=== PATIENT | male | born 1950 | race Two or more races ===

== ENCOUNTER 2024-09-29 13:21 | Inpatient (IN) | payer OTHER ==
[2024-09-29 14:03] LABS: Absolute Eosinophils 0.1 K/uL (0-0.5); Absolute Lymphocytes (CBC) 1.2 K/uL (0.7-4.9); Absolute Monocytes 0.5 K/uL (0.1-1.3); Absolute Neutrophil 3.8 K/uL (1.8-8.0); Basophils % 0.6 % (0-1.3); Eosinophils % 1.6 % (0-4.4); Hematocrit 46.8 % (39.6-49.0); Hemoglobin 15.3 g/dL (13.6-17.9); Lymphocytes % 21.8 % (15.3-44.8); MCH 30.6 pg (27.0-35.0); MCHC 32.8 g/dL (32.0-36.0); MCV 93.3 fL (80-100); MPV 7.9 fL (7.6-11.3); Monocytes % 8.7 % (3.3-12.3); Neutrophils % 67.3 % (41.7-73.7); Nucleated Red Blood Cells % 0.1 % (0-0); Platelets 156 thou/uL (152-406); RBC Red Blood Cell Count 5.02 M/uL (4.33-5.43); Red Cell Distribution Width 14.4 % (12.1-15.2)
[2024-09-29 14:13] LABS: Anion Gap 8.8 mEq/L (5.0-15.0); Magnesium 1.9 mg/dL (1.6-2.4); Potassium 3.8 mEq/L (3.5-5.1); Troponin High Sensitivity 43.1 pg/mL (<58.9)
--- NOTE | 2024-09-29 14:20 | RAD REPORT ---
Procedure: Chest Single View HISTORY: sob COMPARISON: none FINDINGS: [id number] bilateral pleural effusions suspected. Mild bilateral pulmonary opacities. Heart is mildly enlarged. IMPRESSION: These findings probably indicate CHF
[2024-09-29 14:28] LABS: SARS-CoV-2 Antigen CONTROL BLUE LINE VIS/BG OK; SARS-CoV-2 Antigen Rapid Res Negative (Negative)
[2024-09-29 14:30] LABS: PT Prothrombin Time 13.3 SECONDS (9.4-12.5); Protime INR 1.19
--- NOTE | 2024-09-29 14:33 | ER ---
Nurse's Notes [facility] Name: Cy Hills Age: 73 yrs Sex: Male : 1950 Arrival Date: 09/29/2024 Time: 13:21 Bed 4 Private MD: Diagnosis: Heart failure, unspecified;Dyspnea, unspecified Presentation: 09/29 13:30 Chief complaint: EMS states: Pt reports shortness of breath since yesterday. When we jb4 were checking his pulse ox we noticed he had a RR of 36. We ran a 12 lead and noted that the pt was having couplets and triplets. We started him on an Amiodarone drip due to the pvc's. Coronavirus screen: At this time, the client does not indicate any symptoms associated with coronavirus-19. Ebola Screen: No symptoms or risks identified at this time. Initial Sepsis Screen: Does the patient meet any 2 criteria? RR > 20 per min. Yes Does the patient have a suspected source of infection? No. Patient's initial sepsis screen is negative. Risk Assessment: Do you want to hurt yourself or someone else? Patient reports no desire to harm self or others. Onset of symptoms was September 25, 2024. Transition of care: patient was not received from another setting of care. 13:30 Method Of Arrival: EMS: [facility] [place] [place] [facility] jb4 13:30 Acuity: DEBRA 2 jb4 Triage Assessment: 13:36 General: Appears in no apparent distress. comfortable, Behavior is calm, cooperative, jb4 appropriate for age. Pain: Denies pain. Neuro: Level of Consciousness is awake, alert, obeys commands, Oriented to person, place, time, situation. Cardiovascular: Patient's skin is warm and dry. Rhythm is sinus rhythm with couplets. Respiratory: Reports shortness of breath at rest on exertion Airway is patent Respiratory effort is even, labored, Respiratory pattern is symmetrical, tachypnea. Derm: Skin is intact, Skin is pink, warm \T\ dry. Musculoskeletal: Circulation, motion, and sensation intact. Range of motion: intact in all extremities. Historical: - Allergies: 13:49 No Known Allergies; jb4 - PMHx: 13:49 high cholesterol; jb4 13:51 HTN; jb4 - PSHx: 13:49 cardiac stents; jb4 - Immunization history:: Adult Immunizations up to date. - Infectious Disease History:: Denies. - Social history:: Smoking status: Patient denies any tobacco usage or history of. Screenin:03 [facility] ED Fall Risk Assessment (Adult) History of falling in the last 3 months, jb4 including since admission No falls in past 3 months (0 pts) Confusion or Disorientation No (0 pts) Intoxicated or Sedated No (0 pts) Impaired Gait No (0 pts) Mobility Assist Device Used No (0 pt) Altered Elimination No (0 pt) Score/Fall Risk Level 0 - 2 = Low Risk Oriented to surroundings, Maintained a safe environment. Abuse screen: Denies threats or abuse. Nutritional screening: No deficits noted. Tuberculosis screening: No symptoms or risk factors identified. Assessment: 13:36 Reassessment: see triage note. jb4 15:00 Reassessment: Patient appears in no apparent distress at this time. Patient and/or jb4 family updated on plan of care and expected duration. Pain level reassessed. Patient is alert, oriented x 3, equal unlabored respirations, skin warm/dry/pink. 16:18 Reassessment: Patient appears in no apparent distress at this time. Patient and/or jb4 family updated on plan of care and expected duration. Pain level reassessed. Patient is alert, oriented x 3, equal unlabored respirations, skin warm/dry/pink. 16:58 Reassessment: Patient appears in no apparent distress at this time. Patient and/or jb4 family updated on plan of care and expected duration. Pain level reassessed. Patient is alert, oriented x 3, equal unlabored respirations, skin warm/dry/pink. Vital Signs: 13:30 BP 171 / 83; Pulse 75; Resp 21; Pulse Ox 94% on 2 lpm NC; jb4 14:55 BP 161 / 109; Pulse 96; Resp 28; Temp 97.6; Pulse Ox 96% on R/A; jb4 16:18 BP 159 / 103; Pulse 71; Resp 16; Pulse Ox 95% on R/A; jb4 16:58 BP 150 / 89; Pulse 77; Resp 26; Temp 97.8(TE); Pulse Ox 95% on R/A; jb4 ED Course: 13:30 Patient arrived in ED. jb4 13:32 Moises Kunz MD is Attending Physician. ec2 13:36 Arm band placed on right wrist. jb4 13:36 No provider procedures requiring assistance completed. Maintain EMS IV. Dressing jb4 intact. Good blood return noted. Site clean \T\ dry. Gauge \T\ site: 20g RAC. Flushed with 10 mL NS. 13:38 Triage completed. jb4 13:48 Liu Villalobos, RN is Primary Nurse. jb4 13:57 XRAY Chest (1 view) In Process Unspecified. EDMS 14:03 Patient has correct armband on for positive identification. Bed in low position. Call jb4 light in reach. Side rails up X 1. Provided Education on: plan of care. 14:33 Harvey Stewart is Hospitalizing Provider. ec2 15:02 Galilea Goldman [phone] daughter would like to called for any questions or concerns. eb 17:57 Patient admitted, IV remains in place. jb4 Administered Medications: 14:44 Drug: Furosemide IVP 40 mg IVP once; give over 2 minutes Route: IVP; Site: right jb4 antecubital; 15:15 Follow up: Response: No adverse reaction jb4 Output: 16:18 Urine: 1000ml (Voided); Total: 1000ml. jb4 Outcome: 14:33 Decision to Hospitalize by Provider. ec2 17:57 Admitted to Med/surg accompanied by nurse, via stretcher, room 208, with chart, jb4 17:57 Condition: stable 17:57 Discharge instructions given to patient, Instructed on the need for admit, Demonstrated understanding of instructions, 17:58 Patient left the ED. jb4 Signatures: Dispatcher [employer] EDLiu Alan, CHACORTA WHATLEY jb4 Jeanne Tomlinson Moises Kunz MD MD ec2
--- NOTE | 2024-09-29 14:33 | EDPHYS ---
Physician Documentation [facility] Name: Cy Hills Age: 73 yrs Sex: Male : 1950 Arrival Date: 09/29/2024 Time: 13:21 Bed 4 Private MD: ED Physician Moises Kunz HPI: 09/29 13:47 This 73 yrs old Male presents to ER via EMS with complaints of Shortness Of ec2 Breath. 13:47 Patient arrives today for several days of shortness of breath. Patient reports some ec2 congestion. Patient reports shortness of breath ongoing for several days with no specific alleviating or exacerbating factors. Patient reports no nausea or vomiting, does report occasional cough. Denies any chest pain, denies abdominal pain, denies any diarrheal symptoms.. Historical: - Allergies: 13:49 No Known Allergies; jb4 - PMHx: 13:49 high cholesterol; jb4 13:51 HTN; jb4 - PSHx: 13:49 cardiac stents; jb4 - Immunization history:: Adult Immunizations up to date. - Infectious Disease History:: Denies. - Social history:: Smoking status: Patient denies any tobacco usage or history of. ROS: 13:47 Constitutional: as per hpi ec2 Exam: 13:47 Constitutional: GEN: NAD Head: atraumatic Eyes: EOMI Ears: External ears are ec2 normal. CV: regular rate LUNGS: no respiratory distress, no wheezes, no rales, no rhonchi ABD: non-distended SKIN: no evidence of rashes MSK: no evidence of trauma Vital Signs: 13:30 BP 171 / 83; Pulse 75; Resp 21; Pulse Ox 94% on 2 lpm NC; jb4 14:55 BP 161 / 109; Pulse 96; Resp 28; Temp 97.6; Pulse Ox 96% on R/A; jb4 16:18 BP 159 / 103; Pulse 71; Resp 16; Pulse Ox 95% on R/A; jb4 16:58 BP 150 / 89; Pulse 77; Resp 26; Temp 97.8(TE); Pulse Ox 95% on R/A; jb4 MDM: 13:32 Medical Screening Exam initiated ec2 13:47 Data reviewed: vital signs, nurses notes. ED course: Patient arrives today for ec2 evaluation of shortness of breath. Examination is unrevealing. Will obtain lab work, EKG, chest x-ray. Differential includes processes such as ACS, electrolyte disturbances, anemia, volume overload. EKG obtained, independently reviewed and interpreted by me, shows sinus rhythm, rate of 82, no acute ST segment elevations, intervals are nonactionable. 14:20 ED course: Metabolic profile reassuring. BNP elevated at 4400. CBC nonactionable. ec2 Troponin within normal ranges. Magnesium within normal ranges.. 14:21 ED course: Chest x-ray shows cardiomegaly along with vascular congestion consistent ec2 with CHF.. 14:31 ED course: Patient with no known history of congestive heart failure, does not take a ec2 diuretic at home, states he is having some orthopnea as well as some issues with independent activities at home and he lives alone, will admit for diuresis. Discussed with hospitalist, pending admission.. 09/29 13:34 Order name: Basic Metabolic Panel; Complete Time: 14:20 ec2 09/29 13:34 Order name: CBC with Diff; Complete Time: 14:20 ec2 09/29 13:34 Order name: Magnesium; Complete Time: 14:20 ec2 09/29 13:34 Order name: NT PRO-BNP; Complete Time: 14:20 ec2 09/29 13:34 Order name: PT-INR; Complete Time: 14:31 ec2 09/29 13:34 Order name: Troponin HS; Complete Time: 14:20 ec2 09/29 13:34 Order name: Influenza Screen (a \T\ B); Complete Time: 14:31 ec2 09/29 13:34 Order name: SARS RAPID; Complete Time: 14:31 ec2 09/29 16:51 Order name: Thyroid Stimulating Hormone EDMS 09/29 16:51 Order name: CBC with Automated Diff EDMS 09/29 16:51 Order name: CBC with Automated Diff EDMS 09/29 16:51 Order name: CBC with Automated Diff EDMS 09/29 16:51 Order name: CBC with Automated Diff EDMS 09/29 16:51 Order name: CBC with Automated Diff EDMS 09/29 16:51 Order name: Comprehensive Metabolic Panel EDMS 09/29 16:51 Order name: Comprehensive Metabolic Panel ED[facility] 09/29 16:51 Order name: Comprehensive Metabolic Panel ED[facility] 09/29 16:51 Order name: Comprehensive Metabolic Panel [facility] 09/29 16:51 Order name: Comprehensive Metabolic Panel [facility] 09/29 16:51 Order name: Hemoglobin A1c [facility] 09/29 16:51 Order name: Hemoglobin A1c [facility] 09/29 16:51 Order name: Lipid Profile [facility] 09/29 16:51 Order name: Lipid Profile [facility] 09/29 16:51 Order name: Magnesium [facility] 09/29 16:51 Order name: Magnesium [facility] 09/29 16:51 Order name: Magnesium [facility] 09/29 16:51 Order name: Magnesium [facility] 09/29 16:51 Order name: Magnesium [facility] 09/29 16:51 Order name: Phosphorus [facility] 09/29 16:51 Order name: Phosphorus [facility] 09/29 16:52 Order name: Phosphorus [facility] 09/29 16:52 Order name: Phosphorus [facility] 09/29 16:52 Order name: Phosphorus [facility] 09/29 16:52 Order name: Troponin High Sensitivity [facility] 09/29 16:52 Order name: Troponin High Sensitivity [facility] 09/29 16:52 Order name: Troponin High Sensitivity [facility] 09/29 16:52 Order name: Blood Culture [facility] 09/29 13:34 Order name: XRAY Chest (1 view); Complete Time: 14:21 ec2 09/29 16:51 Order name: Echo with Doppler [facility] 09/29 13:34 Order name: EKG; Complete Time: 13:34 ec2 09/29 16:23 Order name: Social Service Consult [facility] 09/29 16:51 Order name: CONS Physician Consult [facility] 09/29 16:51 Order name: Physical Therapy Consult [facility] 09/29 16:51 Order name: Occupational Therapy Consult [facility] 09/29 13:34 Order name: Cardiac monitoring; Complete Time: 13:49 ec2 09/29 13:34 Order name: EKG - Nurse/Tech; Complete Time: 13:49 ec2 09/29 13:34 Order name: IV Saline Lock; Complete Time: 13:49 ec2 09/29 13:34 Order name: Labs collected and sent; Complete Time: 13:49 ec2 09/29 13:34 Order name: O2 Per Protocol; Complete Time: 13:49 ec2 09/29 13:34 Order name: O2 Sat Monitoring; Complete Time: 13:49 ec2 Administered Medications: 14:44 Drug: Furosemide IVP 40 mg IVP once; give over 2 minutes Route: IVP; Site: right jb4 antecubital; 15:15 Follow up: Response: No adverse reaction jb4 Disposition Summary: 09/29/24 14:33 Hospitalization Ordered Notes: Hospitalization Status: Inpatient Admission ec2 Provider: Harvey Stewart ec2 Location: Telemetry/MedSurg (Inpatient) ec2 Condition: Stable ec2 Problem: new ec2 Symptoms: are unchanged ec2 Bed/Room Type: Standard ec2 Room Assignment: 208(09/29/24 16:57) jb4 Diagnosis - Heart failure, unspecified ec2 - Dyspnea, unspecified ec2 Forms: - Medication Reconciliation Form ec2 - SBAR form ec2 - Leadership Thank You Letter ec2 Signatures: Dispatcher [employer] Liu Mathews RN RN jb4 Moises Kunz MD MD ec2 Corrections: (The following items were deleted from the chart) 16:57 14:33 ec2 jb4
[2024-09-29] MEDS ORDERED: FUROSEMIDE 40 MG/4 ML VIAL ONE (14:40)
--- NOTE | 2024-09-29 16:05 | P.HP ---
Certification for Inpatient Patient admitted to: Inpatient With expected LOS: >2 Midnights Patient will require the following post-hospital care: Home Health Services Practitioner: I am a practitioner with admitting privileges, knowledge of patient current condition, hospital course, and medical plan of care. Services: Services provided to patient in accordance with Admission requirements found in Title 42 Section 412.3 of the Code of Federal Regulations Patient History Date of Service: 09/29/24 Reason for admission: Heart failure with unknown EF History of Present Illness: Mr. Hills is a friendly 73-year-old gentleman with a past medical history of hypertension, hyperlipidemia, PAD, CVA, and immobility. He presented to the emergency department via [facility] as his EMS with a complaint of a 3-day history of shortness of breath. He denies exacerbating or alleviating factors. He denies fever, nausea, vomiting but does report occasional cough and palpitations. In the emergency department he was found to have heart failure with unknown EF and volume overload. He is in no acute distress but did receive 40 mg Lasix IV and hospitalist program was consulted for admission. He will need an echo, cardiology consult, and delinquency prevention social worker consult for possible SNF placement versus home health with half-way/PT/OT/wound care. Allergies No Known Allergies Allergy (Unverified 09/29/24 16:05) Home medications list reviewed: Yes (Atorvastatin and aspirin) - Past Medical/Surgical History Has patient received pneumonia vaccine in the past: No Diabetic: No -: Hypertension -: PAD with saphenous vein ligation and stripping -: [place] with PCI x 2 -: Hyperlipidemia -: Tobacco abuse -: CVA x 2 -: PCI x 2 (1999 and 2004) -: Bilateral lower extremity saphenous vein ligation and stripping -: Hernia repair Psychosocial/ Personal History: Lives in [place]. Not ambulatory since 2012. Has had sporadic home health but none presently - Social History Smoking Status: Former smoker Alcohol use: No CD- Drugs: No Caffeine use: Yes Place of Residence: Home Review of Systems 10-point ROS is otherwise unremarkable General: Weakness, Malaise Eyes: Unremarkable ENT: Unremarkable Respiratory: Cough, Shortness of Breath Cardiovascular: Palpitations, Light Headedness Genitourinary: Unremarkable Musculoskeletal: Unremarkable Integumentary: Other (Chronic wounds from immobility) Neurological: Unremarkable Lymphatics: Unremarkable Physical Examination - Physical Exam General: Alert, In no apparent distress, Oriented x3 HEENT: Atraumatic, Normocephalic, PERRLA Neck: Supple Respiratory: Clear to auscultation bilaterally, Normal air movement Cardiovascular: No edema, Irregular heart rate/rhythm Capillary refill: <2 Seconds Gastrointestinal: Normal bowel sounds Musculoskeletal: No clubbing, No swelling Integumentary: Pressure ulcer Neurological: Normal affect, Abnormal gait, Abnormal strength, Abnormal tone Lymphatics: No axilla or inguinal lymphadenopathy External genitalia: Deferred Rectal: Deferred - Studies Laboratory Data (last 24 hrs) 09/29/24 09/29/24 09/29/24 13:35 13:35 13:35 WBC 5.70 Hgb 15.3 Hct 46.8 Plt Count 156 PT 13.3 H INR 1.19 Sodium 138 Potassium 3.8 BUN 12 Creatinine 0.70 Glucose 114 H Magnesium 1.9 Microbiology Data (last 24 hrs): 09/29/24 13:43 Nasopharnyx Influenza Type A Antigen Screen - Final 09/29/24 13:43 Nasopharnyx Influenza Type B Antigen Screen - Final Assessment and Plan - Plan Heart failure with unknown EF secondary to uncontrolled HTN History of CVA x 2 secondary to hypertension/Hyperlipidemia PAD status post saphenous vein ligation and stripping Status postcardiac stent post [place] x2 Plan: Echocardiogram ALEXA inhibitor/ARB Beta-yoav Cardiology consultation Aggressive diuresis Strict Is & Os Repeat chest x-ray Daily weight Education regarding diet and treatment of congestive heart failure patient states current medications include only atorvastatin and 162 mg ASA daily 40-year pack history former smoker, now only smokes occasional THC Recommend cessation Social determinant of health problematic with home health as patient has moved from the area where it was instituted Disability and poor conditioning/chronically nonambulatory resulting in chronic wounds vp marketing services and skin consult PT/OT consult Home health versus SNF placement Wound care consult VTE/GI prophylaxis - Advance Directives Does patient have a Living Will: No Does patient have a Durable POA for Healthcare: No - Code Status/Comfort Care Code Status Assessed: Yes
[2024-09-29] MEDS ORDERED: ACETAMINOPHEN 500 MG TAB PO PRN (16:31)
[2024-09-29] MEDS ORDERED: SODIUM CHLORIDE 0.9% 10ML INJ IV PRN (16:45)
[2024-09-29 18:02] VITALS: BMI 26.6
[2024-09-29] MEDS: IPRATROPIUM BROM 0.5MG/2.5ML NEB SCH (20:09)
[2024-09-29] MEDS: ALBUTEROL 2.5 MG/3 ML NEB SOL NEB SCH (20:09)
[2024-09-29] MEDS: lisinopriL 5 MG TAB PO SCH (21:08)
[2024-09-29] MEDS: carvediloL 6.25 MG TAB PO SCH (21:08)
[2024-09-30 06:12] LABS: Absolute Basophils 0.1 K/uL (0-0.5); Absolute Eosinophils 0.1 K/uL (0-0.5); Absolute Lymphocytes (CBC) 1.5 K/uL (0.7-4.9); Absolute Monocytes 0.6 K/uL (0.1-1.3); Absolute Neutrophil 4.6 K/uL (1.8-8.0); Basophils % 0.9 % (0-1.3); Hematocrit 44.5 % (39.6-49.0); Hemoglobin 15.2 g/dL (13.6-17.9); Lymphocytes % 21.5 % (15.3-44.8); MCH 31.4 pg (27.0-35.0); MCHC 34.1 g/dL (32.0-36.0); MPV 7.7 fL (7.6-11.3); Monocytes % 8.3 % (3.3-12.3); Neutrophils % 67.3 % (41.7-73.7); Platelets 160 thou/uL (152-406); RBC Red Blood Cell Count 4.84 M/uL (4.33-5.43); Red Cell Distribution Width 14.1 % (12.1-15.2)
[2024-09-30 06:31] LABS: AST/SGOT 14 U/L (15-37); Albumin 3.3 g/dL (3.4-5.0); Albumin/Globulin Ratio 1.1 (1.1-1.8); Alkaline Phosphatase 74 U/L (45-117); Anion Gap 6.1 mEq/L (5.0-15.0); BUN Blood Urea Nitrogen 16 mg/dL (7-18); Bicarbonate 29 mEq/L (21-32); Bilirubin Total 1.8 mg/dL (0.2-1.0); Glomerular Filtration Rate 92 ml/min (=/>90); Glucose Level 122 mg/dL (74-106); HDL Cholesterol 42 mg/dL (40-60); LDL Cholesterol, Calculated 65 mg/dL (<130); LDL Cholesterol,Calc NonReport 65; Magnesium 2.1 mg/dL (1.6-2.4); Phosphorus 3.9 mg/dL (2.5-4.9); Potassium 4.1 mEq/L (3.5-5.1); Protein, Total 6.3 g/dL (6.4-8.2); Sodium Level 138 mEq/L (136-145); Troponin High Sensitivity 46.7 pg/mL (<58.9)
[2024-09-30 06:32] LABS: ALT/SGPT < 14 U/L (16-61)
[2024-09-30] MEDS: FUROSEMIDE 40 MG/4 ML VIAL IV SCH ×2 (09:05→20:31)
[2024-09-30] MEDS: ASPIRIN EC 81 MG TAB PO SCH (09:05)
[2024-09-30] MEDS: ENOXAPARIN 40 MG/0.4 ML SQ SCH (09:06)
[2024-09-30] MEDS: PANTOPRAZOLE 40 MG INJ IVP SCH (09:06)
--- NOTE | 2024-09-30 09:08 | P.PN ---
Date of Service: 09/30/24 Subjective No complaints or events overnight, awaiting further eval Review of Systems 10-point ROS is otherwise unremarkable General: Weakness, Malaise Eyes: Unremarkable ENT: Unremarkable Respiratory: Cough, wheeze Cardiovascular: Unremarkable Genitourinary: Unremarkable Musculoskeletal: Unremarkable Integumentary: Other (Chronic wounds from immobility) Neurological: Unremarkable Lymphatics: Unremarkable Physical Examination Vitals 138/78, 72 (vastly improved) over admission - Physical Exam General: Alert, In no apparent distress, Oriented x3 HEENT: Atraumatic, Normocephalic, PERRLA Neck: Supple Respiratory: wheeze to auscultation bilaterally, Normal air movement Cardiovascular: No edema, Irregular heart rate/rhythm Capillary refill: <2 Seconds Gastrointestinal: Normal bowel sounds Musculoskeletal: No clubbing, No swelling Integumentary: Pressure ulcer Neurological: Normal affect, Abnormal gait, Abnormal strength, Abnormal tone Lymphatics: No axilla or inguinal lymphadenopathy External genitalia: Deferred Rectal: Deferred - Studies Laboratory Data (last 24 hrs) 09/29/24 09/29/24 09/29/24 13:35 13:35 13:35 WBC 5.70 Hgb 15.3 Hct 46.8 Plt Count 156 PT 13.3 H INR 1.19 Sodium 138 Potassium 3.8 BUN 12 Creatinine 0.70 Glucose 114 H Magnesium 1.9 Microbiology Data (last 24 hrs): 09/29/24 13:43 Nasopharnyx Influenza Type A Antigen Screen - Final 09/29/24 13:43 Nasopharnyx Influenza Type B Antigen Screen - Final Assessment and Plan Heart failure with unknown EF secondary to uncontrolled HTN History of CVA x 2 secondary to hypertension/Hyperlipidemia PAD status post saphenous vein ligation and stripping Status postcardiac stent post [place] x2 Plan: Echocardiogram ALEXA inhibitor/ARB Beta-yoav Cardiology consultation Aggressive diuresis Strict Is & Os Repeat chest x-ray Daily weight Education regarding diet and treatment of congestive heart failure patient states current medications include only atorvastatin and 162 mg ASA daily 09/30/24 AM labs stable 40-year pack history former smoker, now only smokes occasional THC COPD wheezing - nebs as orderd Recommend cessation Social determinant of health problematic with home health as patient has moved from the area where it was instituted Disability and poor conditioning/chronically nonambulatory resulting in chronic wounds career services director consult PT/OT consult Home health versus SNF placement Wound care consult VTE/GI prophylaxis - Advance Directives Does patient have a Living Will: No Does patient have a Durable POA for Healthcare: No - Code Status/Comfort Care Code Status Assessed: Yes Full Code
[2024-09-30] MEDS: LOPERAMIDE HCL 2 MG CAPSULE PO ONE (11:05)
[2024-09-30] MEDS: GUAIFENESIN 600 MG SA TAB PO SCH (22:31)
[2024-09-30] MEDS: BENZONATATE 100 MG CAP PO SCH (22:31)
[2024-10-01 05:27] LABS: Absolute Eosinophils 0.2 K/uL (0-0.5); Absolute Lymphocytes (CBC) 1.5 K/uL (0.7-4.9); Absolute Monocytes 0.7 K/uL (0.1-1.3); Absolute Neutrophil 4.3 K/uL (1.8-8.0); Basophils % 0.6 % (0-1.3); Hematocrit 45.1 % (39.6-49.0); Hemoglobin 15.2 g/dL (13.6-17.9); MCH 30.9 pg (27.0-35.0); MCHC 33.6 g/dL (32.0-36.0); MPV 7.7 fL (7.6-11.3); Monocytes % 9.9 % (3.3-12.3); Neutrophils % 64.5 % (41.7-73.7); Nucleated Red Blood Cells % 0.2 % (0-0); Platelets 159 thou/uL (152-406); Red Cell Distribution Width 14.3 % (12.1-15.2)
[2024-10-01 05:45] LABS: AST/SGOT 11 U/L (15-37); Albumin 3.2 g/dL (3.4-5.0); Alkaline Phosphatase 71 U/L (45-117); Anion Gap 7.9 mEq/L (5.0-15.0); BUN Blood Urea Nitrogen 17 mg/dL (7-18); Bicarbonate 30 mEq/L (21-32); Bilirubin Total 1.7 mg/dL (0.2-1.0); Globulin 3.2 g/dL (2.3-3.5); Glomerular Filtration Rate 87 ml/min (=/>90); Glucose Level 113 mg/dL (74-106); Phosphorus 3.6 mg/dL (2.5-4.9); Potassium 3.9 mEq/L (3.5-5.1); Protein, Total 6.4 g/dL (6.4-8.2); Sodium Level 136 mEq/L (136-145)
[2024-10-01 06:02] LABS: ALT/SGPT < 14 U/L (16-61)
[2024-10-01] MEDS: PANTOPRAZOLE 40MG TABLET PO SCH (08:46)
--- NOTE | 2024-10-01 10:39 | P.PN ---
Date of Service: 10/01/24 Subjective No complaints or events overnight, awaiting further eval, increased Lasix to BID, pt ambulated to bathroom with gait belt/assist Review of Systems 10-point ROS is otherwise unremarkable General: Weakness, Malaise Eyes: Unremarkable ENT: Unremarkable Respiratory: Cough, wheeze Cardiovascular: Unremarkable Genitourinary: Unremarkable Musculoskeletal: Unremarkable Integumentary: Other Neurological: Unremarkable Lymphatics: Unremarkable Physical Examination Vitals reviewed - Physical Exam General: Alert, In no apparent distress, Oriented x3 HEENT: Atraumatic, Normocephalic, PERRLA Neck: Supple Respiratory: wheezes to auscultation bilaterally Cardiovascular: No edema, Irregular heart rate/rhythm Capillary refill: <2 Seconds Gastrointestinal: Normal bowel sounds Musculoskeletal: No clubbing, No swelling Integumentary: Pressure ulcer Neurological: Normal affect, Abnormal gait, Abnormal strength, Abnormal tone Lymphatics: No axilla or inguinal lymphadenopathy External genitalia: Deferred Rectal: Deferred - Studies Laboratory Data (last 24 hrs) 09/29/24 09/29/24 09/29/24 13:35 13:35 13:35 WBC 5.70 Hgb 15.3 Hct 46.8 Plt Count 156 PT 13.3 H INR 1.19 Sodium 138 Potassium 3.8 BUN 12 Creatinine 0.70 Glucose 114 H Magnesium 1.9 Microbiology Data (last 24 hrs): 09/29/24 13:43 Nasopharnyx Influenza Type A Antigen Screen - Final 09/29/24 13:43 Nasopharnyx Influenza Type B Antigen Screen - Final Assessment and Plan Heart failure with unknown EF secondary to uncontrolled HTN History of CVA x 2 secondary to hypertension/Hyperlipidemia PAD status post saphenous vein ligation and stripping Status postcardiac stent post [place] x2 Plan: Echocardiogram ALEXA inhibitor/ARB Beta-yoav Cardiology consultation Aggressive diuresis Strict Is & Os Repeat chest x-ray Daily weight Education regarding diet and treatment of congestive heart failure patient states current medications include only atorvastatin and 162 mg ASA daily 09/30/24 AM labs stable 40-year pack history former smoker, now only smokes occasional THC COPD wheezing - nebs as orderd Recommend cessation Social determinant of health problematic with home health as patient has moved from the area where it was instituted Disability and poor conditioning/chronically nonambulatory resulting in chronic wounds technology services manager consult PT/OT consult Home health versus SNF placement VTE/GI prophylaxis - Advance Directives Does patient have a Living Will: No Does patient have a Durable POA for Healthcare: No - Code Status/Comfort Care Code Status Assessed: Yes Full Code
[2024-10-01] MEDS ORDERED: SODIUM CHLORIDE 0.9% 10ML INJ IV PRN (15:46)
[2024-10-01] MEDS: PANTOPRAZOLE 40 MG INJ IVP SCH (15:57)
[2024-10-01] MEDS: NA CHLORIDE 0.9% 1,000 ML IV SCH (15:57)
--- NOTE | 2024-10-01 16:47 | P.PN ---
Pt tried to swallow tessalon perle and he feels like it is stuck. He states his is not able to swallow water without cough. Made NPO until speech therapy and barium swallow eval takes place. NS at 75ml/hr up. Continue nebs, add protonix. Physical Examination Vitals reviewed - Physical Exam General: Alert, In no apparent distress, Oriented x3 HEENT: Atraumatic, Normocephalic, PERRLA Neck: Supple Respiratory: wheezes to auscultation bilaterally Cardiovascular: No edema, Irregular heart rate/rhythm Capillary refill: <2 Seconds Gastrointestinal: Normal bowel sounds Musculoskeletal: No clubbing, No swelling Integumentary: Pressure ulcer Neurological: Normal affect, Abnormal gait, Abnormal strength, Abnormal tone Lymphatics: No axilla or inguinal lymphadenopathy External genitalia: Deferred Rectal: Deferred
[2024-10-02 05:43] LABS: Absolute Eosinophils 0.2 K/uL (0-0.5); Absolute Lymphocytes (CBC) 1.4 K/uL (0.7-4.9); Absolute Monocytes 0.5 K/uL (0.1-1.3); Absolute Neutrophil 2.8 K/uL (1.8-8.0); Basophils % 0.7 % (0-1.3); Eosinophils % 3.8 % (0-4.4); Hematocrit 43.4 % (39.6-49.0); Hemoglobin 14.7 g/dL (13.6-17.9); Lymphocytes % 27.8 % (15.3-44.8); MCH 31.1 pg (27.0-35.0); MCHC 33.7 g/dL (32.0-36.0); MCV 92.2 fL (80-100); Monocytes % 10.7 % (3.3-12.3); Platelets 153 thou/uL (152-406); RBC Red Blood Cell Count 4.71 M/uL (4.33-5.43); Red Cell Distribution Width 13.8 % (12.1-15.2)
[2024-10-02 05:54] LABS: AST/SGOT 12 U/L (15-37); Albumin 3.2 g/dL (3.4-5.0); Alkaline Phosphatase 75 U/L (45-117); Anion Gap 10.3 mEq/L (5.0-15.0); BUN Blood Urea Nitrogen 18 mg/dL (7-18); Bicarbonate 26 mEq/L (21-32); Bilirubin Total 1.6 mg/dL (0.2-1.0); Globulin 3.3 g/dL (2.3-3.5); Glomerular Filtration Rate 99 ml/min (=/>90); Glucose Level 109 mg/dL (74-106); Magnesium 2.1 mg/dL (1.6-2.4); Phosphorus 3.8 mg/dL (2.5-4.9); Potassium 3.3 mEq/L (3.5-5.1); Protein, Total 6.5 g/dL (6.4-8.2); Sodium Level 136 mEq/L (136-145)
[2024-10-02 05:56] LABS: ALT/SGPT < 14 U/L (16-61)
--- NOTE | 2024-10-02 06:08 | P.PN ---
Date of Service: 10/02/24 Subjective Reports shortness of breath with exertion, O2 94% on 4L Review of Systems 10-point ROS is otherwise unremarkable Physical Examination vitals reviewed - Physical Exam General: Alert,Oriented x3 HEENT: Atraumatic, Normocephalic, PERRLA Neck: Supple Respiratory: Crackles, equal unlabored Cardiovascular: No edema, regular heart rate/rhythm Capillary refill: <2 Seconds Gastrointestinal: Normal bowel sounds Musculoskeletal: No clubbing, No swelling Integumentary: Pressure ulcer Neurological: Normal affect, Abnormal gait, Abnormal strength, Abnormal tone Assessment and Plan Heart failure decompensated heart failure unknown ejection for Acute hypoxic respiratory failure secondary to bilateral pleural effusion O2 keep sats greater than 90%, nebs, Cardiomegaly uncontrolled HTN History of CVA x 2 hypertensionHyperlipidemia PAD status post saphenous vein ligation and stripping History of TX status postcardiac stent post TX x2 Echocardiogram ALEXA inhibitor/ARB Beta-yoav Cardiology consultation Aggressive diuresis Strict Is & Os Repeat chest x-ray Daily weight Education regarding diet and treatment of congestive heart failure patient states current medications include only atorvastatin and 162 mg ASA daily 09/30/24 AM labs stable Dysphagia Barium swallow study-no overt aspiration noted 40-year pack history former smoker, now only smokes occasional THC COPD wheezing - nebs as orderd Recommend cessation Social determinant of health problematic with home health as patient has moved from the area where it was instituted Disability and poor conditioning/chronically nonambulatory resulting in chronic wounds assistant guest services manager consult PT/OT consult Home health versus SNF placement Wound care consult VTE/GI prophylaxis - Advance Directives Does patient have a Living Will: No Does patient have a Durable POA for Healthcare: No - Code Status/Comfort Care Code Status Assessed: Yes Full Code Time spent with patient 30 minutes <Lisbeth Maravilla - Last Filed: 10/02/24 21:37> Patient was seen and examined. Events of the last 24 hours have been noted. Spoke with with KAROLINE regarding patient's clinical picture after evaluating and examining the patient independently. I performed a substantial part of the MDM during this patient's care today. I personally made or approved the documented management plan and acknowledge its risk of complications. I agree with the findings and documentation provided in the KAROLINE's notes. Continue with diuretics. Continue with strict blood pressure control. Continue with strict blood pressure control as well. Advance diet as tolerated and outpatient speech therapy and physical therapy follow-up. <Lida High - Last Filed: 10/21/24 19:47>
[2024-10-02] MEDS: POTASSIUM CL SA 10 MEQ TAB PO ONE (06:09)
[2024-10-02] MEDS: KCL 20 MEQ/100 mL IVPB 20 MEQ/100 ML BAG IV SCH (09:01)
--- NOTE | 2024-10-02 12:04 | EKG ---
Test Date: 2024-09-29 Test Time: 13:29:00 Benefits Processor: JESSICA MEASUREMENT RESULTS: Intervals: Rate: 82 ID: [id number] QRSD: 100 QT: 382 QTc: 446 [place]: P: 33 ID: [id number] QRS: -56 T: 86 INTERPRETIVE STATEMENTS: Sinus rhythm with premature supraventricular complexes with frequent and consecutive premature ventricular complexes Left anterior fascicular block Inferior infarct, age undetermined Anterolateral infarct, age undetermined Abnormal ECG No previous ECG available for comparison Electronically Signed On 10-02-24 12:01:49 WEATHERIZATION TECHNICIAN by Devan Wren
--- NOTE | 2024-10-02 13:02 | P.CNS ---
Date of Consult: 10/02/24 Chief Complaint: Heart failure with unknown EF History of Present Illness: Patient with PMH of CAD s/p multiple stents placement, presented with worsening SOB, weakness, denies chest pain, no palpitations, no syncope. Allergies No Known Allergies Allergy (Unverified 09/29/24 16:05) Home medications list reviewed: Yes Home Medications: Aspirin [Aspirin EC] 2 tab PO DAILY 09/29/24 Atorvastatin Calcium 40 mg PO DAILY 09/29/24 - Past Medical/Surgical History Diabetic: No -: Hypertension -: PAD with saphenous vein ligation and stripping -: WI with PCI x 2 -: Hyperlipidemia -: Tobacco abuse -: CVA x 2 -: PCI x 2 (1999 and 2004) -: Bilateral lower extremity saphenous vein ligation and stripping -: Hernia repair Psychosocial/ Personal History: Lives in [place]. Not ambulatory since 2012. Has had sporadic home health but none presently - Social History Alcohol use: No CD- Drugs: Yes Caffeine use: No Place of Residence: Home Review of Systems 10-point ROS is otherwise unremarkable Physical Examination Temp Pulse Resp BP Pulse Ox 97.5 F 56 16 157/70 H 93 10/02/24 08:00 10/02/24 09:00 10/02/24 08:00 10/02/24 09:00 10/02/24 08:00 General: Alert, In no apparent distress HEENT: Atraumatic, PERRLA, Mucous membr. moist/pink, EOMI, Sclerae nonicteric Neck: Supple, 2+ carotid pulse no bruit, No LAD, Without JVD or thyroid abnormality Respiratory: Clear to auscultation bilaterally, Normal air movement Cardiovascular: Regular rate/rhythm, Normal S1 S2 Gastrointestinal: Normal bowel sounds, No tenderness Musculoskeletal: No tenderness Integumentary: No rashes Neurological: Normal gait, Normal speech, Normal tone, Normal affect Lymphatics: No axilla or inguinal lymphadenopathy - Problems (1) Heart failure Current Visit: Yes Status: Acute Plan: unknown EF, get echo patient diuresed well with IV lasix switch to Lasix 40 mg po daily add Aldactone 25 mg daily continue Coreg 6.25 mg po BID Continue Lisinopril 5 mg daily (2) Coronary artery disease Current Visit: Yes Status: Acute Plan: continue ASA 81 mg daily continue lipitor 40 mg daily
--- NOTE | 2024-10-02 18:03 | RAD REPORT ---
Modified barium swallow exam with speech pathology service HISTORY: [facility] MAIN dysphagia Fluoroscopy Time: 2:38 minutes. Skin dose: 14.02 mg IMPRESSION: Please see the speech pathology service report for details. Barium contrast of multiple consistencies was provided the patient orally by the speech pathology dep artment. Fluoroscopic observation was performed during swallowing. The radiologist was not present for the examination. Provided images demonstrate no evidence for asad subglottic tracheal aspiration or laryngeal penetration. Pyriform sinus residues.
[2024-10-03 05:21] LABS: Absolute Eosinophils 0.3 K/uL (0-0.5); Absolute Lymphocytes (CBC) 1.3 K/uL (0.7-4.9); Absolute Monocytes 0.6 K/uL (0.1-1.3); Absolute Neutrophil 3.6 K/uL (1.8-8.0); Basophils % 0.7 % (0-1.3); Eosinophils % 4.7 % (0-4.4); Hemoglobin 14.8 g/dL (13.6-17.9); Lymphocytes % 22.8 % (15.3-44.8); MCH 30.9 pg (27.0-35.0); MCHC 33.7 g/dL (32.0-36.0); MCV 91.6 fL (80-100); MPV 7.8 fL (7.6-11.3); Monocytes % 10.7 % (3.3-12.3); Neutrophils % 61.1 % (41.7-73.7); Platelets 161 thou/uL (152-406); RBC Red Blood Cell Count 4.81 M/uL (4.33-5.43); Red Cell Distribution Width 13.7 % (12.1-15.2)
[2024-10-03 05:44] LABS: Albumin 3.2 g/dL (3.4-5.0); Anion Gap 11.3 mEq/L (5.0-15.0); Bilirubin Total 1.5 mg/dL (0.2-1.0); Globulin 3.1 g/dL (2.3-3.5); Magnesium 2.1 mg/dL (1.6-2.4); Potassium 3.3 mEq/L (3.5-5.1); Protein, Total 6.3 g/dL (6.4-8.2)
--- NOTE | 2024-10-03 07:59 | P.DS ---
Admission Date: 09/29/24 Discharge Date: 10/04/24 Reason for Admission: Heart failure with unknown EF Brief History of Present Illness: Mr. Hills is a friendly 73-year-old gentleman with a past medical history of hypertension, hyperlipidemia, PAD, CVA, and immobility. He presented to the emergency department via [facility] as his EMS with a complaint of a 3-day history of shortness of breath. He denies exacerbating or alleviating factors. He denies fever, nausea, vomiting but does report occasional cough and palpitations. In the emergency department he was found to have heart failure with unknown EF and volume overload. He is in no acute distress but did receive 40 mg Lasix IV and hospitalist program was consulted for admission. He will need an echo, cardiology consult, and social work assistant consult for possible SNF placement versus home health with care home/PT/OT/wound care. - Physical Exam General: Alert, In no apparent distress, Oriented x3 HEENT: Atraumatic, Normocephalic, PERRLA Neck: Supple Respiratory: Clear to auscultation bilaterally, Normal air movement Cardiovascular: No edema, Irregular heart rate/rhythm Capillary refill: <2 Seconds Gastrointestinal: Normal bowel sounds Musculoskeletal: No clubbing, No swelling Integumentary: Pressure ulcer Neurological: Normal affect, Abnormal gait, Abnormal strength, Abnormal tone Lymphatics: No axilla or inguinal lymphadenopathy Hospital Course: 73-year-old gentleman with a past medical history of hypertension, hyperlipidemia, PAD, CVA, and immobility. He presented to the emergency department via [facility] as his EMS with a complaint of a 3-day history of shortness of breath. He denies exacerbating or alleviating factors. In the emergency department he was found to have heart failure with unknown EF and volume overload. He is in no acute distress but did receive 40 mg Lasix IV and hospitalist program was consulted for admission. He will need an echo, cardiology consult, and social work assistant consult for possible SNF placement versus home health with care home/PT/OT/wound care. Was noted to have acute decompensated heart failure, was treated with aggressive diuresis. Speech eval was normal, no dysphagia noted. Tolerating diet, stable to discharge home with home health, follow-up with cardiology after discharge Discharge medication Lasix 40 mg daily Aldactone 25 mg daily Coreg 6.25 p.o. twice daily Lisinopril 5 mg daily Plan to discharge home with home health, care home for wound care, Swallow eval, no overt aspiration noted Assessment Acute decompensated heart failure, echo was ordered, if not completed will need to follow-up outpatient with cardiology Bilateral pleural effusion, treated with aggressive diuresis, O2 2 L acute Uncontrolled hypertension, discharged home on antihypertensive, CAD, MA x 2, PCI History of CVA x 2, History of 40-year tobacco use, marijuana use, Continue home medicines as previously prescribed GOAL: Clear understanding of disease process INSTRUCTIONS: Physician Discharge Instructions: -Follow-up with cardiology after discharge -Follow-up with PCP in 1 to 2 weeks -Please call Dr. High at [phone] if any questions regarding hospital stay -Please call nursing station at [phone] if any nursing or medication questions -Return to the emergency room if symptoms worsen Diet: ADA, low sodium Activity: Fall precautions <Lisbeth Maravilla - Last Filed: 10/05/24 05:22> Admission Date: 09/29/24 Discharge Date: 10/04/24 Hospital Course: Patient was seen and examined. Events of the last 24 hours have been noted. Spoke with with KAROLINE regarding patient's clinical picture after evaluating and examining the patient independently. I performed a substantial part of the MDM during this patient's care today. I personally made or approved the documented management plan and acknowledge its risk of complications. I agree with the findings and documentation provided in the KAROLINE's notes. Continue with diuretics. Continue with strict blood pressure control. Continue with strict blood pressure control as well. Advance diet as tolerated and outpatient follow-up with PCP and patient will follow-up with home health for speech therapy and physical therapy at discharge. <Lida High - Last Filed: 10/21/24 19:48> Disposition: NM HOME/HOME HEALTH CARE Discharge Condition: GOOD Vital Signs/Physical Exam: Temp Pulse Resp BP Pulse Ox 97 F 55 18 145/73 H 92 10/03/24 04:00 10/03/24 04:00 10/03/24 04:00 10/03/24 04:00 10/03/24 04:00 Laboratory Data at Discharge: WBC 5.80 thou/uL (4.3-10.9) 10/03/24 04:54 Hgb 14.8 g/dL (13.6-17.9) 10/03/24 04:54 Hct 44.0 % (39.6-49.0) 10/03/24 04:54 Plt Count 161 thou/uL (152-406) 10/03/24 04:54 PT 13.3 SECONDS (9.4-12.5) H 09/29/24 13:35 INR 1.19 09/29/24 13:35 Sodium 134 mEq/L (136-145) L 10/03/24 04:54 Potassium 3.3 mEq/L (3.5-5.1) L 10/03/24 04:54 BUN 21 mg/dL (7-18) H 10/03/24 04:54 Creatinine 0.63 mg/dL (0.70-1.30) L 10/03/24 04:54 Glucose 105 mg/dL (74-106) 10/03/24 04:54 Phosphorus 3.0 mg/dL (2.5-4.9) 10/03/24 04:54 Magnesium 2.1 mg/dL (1.6-2.4) 10/03/24 04:54 Total Bilirubin 1.5 mg/dL (0.2-1.0) H 10/03/24 04:54 AST 13 U/L (15-37) L 10/03/24 04:54 ALT 15 U/L (16-61) L 10/03/24 04:54 Alkaline Phosphatase 71 U/L (45-117) 10/03/24 04:54 Triglycerides 119 mg/dL (<150) 09/30/24 05:41 Cholesterol 131 mg/dL (<200) 09/30/24 05:41 HDL Cholesterol 42 mg/dL (40-60) 09/30/24 05:41 Cholesterol/HDL Ratio 3.12 09/30/24 05:41 <Lisbeth Maravilla - Last Filed: 10/05/24 05:22> Vital Signs/Physical Exam: Temp Pulse Resp BP Pulse Ox 98.4 F 61 20 116/81 94 10/04/24 12:00 10/04/24 12:00 10/04/24 12:00 10/04/24 12:00 10/04/24 12:00 Laboratory Data at Discharge: WBC 5.60 thou/uL (4.3-10.9) 10/04/24 05:03 Hgb 14.8 g/dL (13.6-17.9) 10/04/24 05:03 Hct 44.3 % (39.6-49.0) 10/04/24 05:03 Plt Count 158 thou/uL (152-406) 10/04/24 05:03 PT 13.3 SECONDS (9.4-12.5) H 09/29/24 13:35 INR 1.19 09/29/24 13:35 Sodium 134 mEq/L (136-145) L 10/04/24 05:03 Potassium 3.7 mEq/L (3.5-5.1) 10/04/24 05:03 BUN 19 mg/dL (7-18) H 10/04/24 05:03 Creatinine 0.62 mg/dL (0.70-1.30) L 10/04/24 05:03 Glucose 119 mg/dL (74-106) H 10/04/24 05:03 Phosphorus 2.9 mg/dL (2.5-4.9) 10/04/24 05:03 Magnesium 2.1 mg/dL (1.6-2.4) 10/03/24 04:54 Total Bilirubin 1.5 mg/dL (0.2-1.0) H 10/03/24 04:54 AST 13 U/L (15-37) L 10/03/24 04:54 ALT 15 U/L (16-61) L 10/03/24 04:54 Alkaline Phosphatase 71 U/L (45-117) 10/03/24 04:54 Triglycerides 119 mg/dL (<150) 09/30/24 05:41 Cholesterol 131 mg/dL (<200) 09/30/24 05:41 HDL Cholesterol 42 mg/dL (40-60) 09/30/24 05:41 Cholesterol/HDL Ratio 3.12 09/30/24 05:41 <Lida High - Last Filed: 10/21/24 19:48> Diet: AHA Activity: Fall precautions Time spent managing pt's care (in minutes): 45 <Lisbeth Maravilla - Last Filed: 10/05/24 05:22> <Lida High - Last Filed: 10/21/24 19:48> Home Medications: Aspirin [Aspirin EC] 1 tab PO DAILY 30 Days #30 tab 10/03/24 Atorvastatin Calcium 40 mg PO DAILY 30 Days #30 tab 10/03/24 Furosemide [Lasix] 40 mg PO DAILY 30 Days #30 tab 10/03/24 Spironolactone 25 mg PO DAILY #30 tab 10/03/24 carvediloL [Coreg*] 6.25 mg PO BID 30 Days #60 tab 10/03/24 lisinopriL [Prinivil*] 5 mg PO BEDTIME 30 Days #30 tab 10/03/24 New Medications: Aspirin [Aspirin EC] 1 tab PO DAILY 30 Days #30 tab Atorvastatin Calcium 40 mg PO DAILY 30 Days #30 tab carvediloL [Coreg*] 6.25 mg PO BID 30 Days #60 tab Furosemide [Lasix] 40 mg PO DAILY 30 Days #30 tab lisinopriL [Prinivil*] 5 mg PO BEDTIME 30 Days #30 tab Spironolactone 25 mg PO DAILY #30 tab Physician Discharge Instructions: 73-year-old gentleman with a past medical history of hypertension, hyperlipidemia, PAD, CVA, and immobility. He presented to the emergency department via [facility] as his EMS with a complaint of a 3-day history of shortness of breath. He denies exacerbating or alleviating factors. In the emergency department he was found to have heart failure with unknown EF and volume overload. He is in no acute distress but did receive 40 mg Lasix IV and hospitalist program was consulted for admission. He will need an echo, cardiology consult, and social work assistant consult for possible SNF placement versus home health with care home/PT/OT/wound care. Was noted to have acute decompensated heart failure, was treated with aggressive diuresis. Speech eval was normal, no dysphagia noted. Tolerating diet, stable to discharge home with home health, follow-up with cardiology after discharge Discharge medication Lasix 40 mg daily Aldactone 25 mg daily Coreg 6.25 p.o. twice daily Lisinopril 5 mg daily Plan to discharge home with home health, care home for wound care, Swallow eval, no overt aspiration noted Assessment Acute decompensated heart failure, echo was ordered, if not completed will need to follow-up outpatient with cardiology Bilateral pleural effusion, treated with aggressive diuresis, O2 2 L acute Uncontrolled hypertension, discharged home on antihypertensive, CAD, MA x 2, PCI History of CVA x 2, History of 40-year tobacco use, marijuana use, Continue home medicines as previously prescribed GOAL: Clear understanding of disease process INSTRUCTIONS: Physician Discharge Instructions: -Follow-up with cardiology after discharge -Follow-up with PCP in 1 to 2 weeks -Please call Dr. High at [phone] if any questions regarding hospital stay -Please call nursing station at [phone] if any nursing or medication questions -Return to the emergency room if symptoms worsen Diet: ADA, low sodium Activity: Fall precautions Followup: Devan Wren MD [ACTIVE - CAN ADMIT] - 1-2 Weeks OOT,OOT [Primary Care Provider] -
[2024-10-03] MEDS: POTASSIUM CL SA 10 MEQ TAB PO ONE (10:24)
[2024-10-03] MEDS: FUROSEMIDE 40 MG TABLET PO SCH (10:25)
--- NOTE | 2024-10-03 11:21 | ECHO ---
HEIGHT: 5 ft 7 in WEIGHT: 170 lb 0 oz DATE OF STUDY: 10/02/[address]: Sunni Hammer FIBERGLASS ROLLER-BC 2-DIMENSIONAL: YES M.MODE: YES DOPPLER: YES COLOR FLOW: YES TDS: NO PORTABLE: YES DEFINITY: NO BUBBLE STUDY: NO DIAGNOSIS: NEW DIAGNOSIS OF HEART FAILURE CARDIAC HISTORY: CATHERIZATION: SURGERY: PROSTHETIC VALVE: PACEMAKER: MEASUREMENTS (cm) DIASTOLIC (NORMALS) SYSTOLIC (NORMALS) IVSd 1.1 (0.6-1.2) LA Diam 3.8 (1.9-4.0) LVEF 30-35% LVIDd 6.1 (3.5-5.7) LVIDs 4.8 (2.0-3.5) %FS 20% LVPWd 1.0 (0.6-1.2) Ao Diam 3.2 (2.0-3.7) 2 DIMENSIONAL ASSESSMENT: RIGHT ATRIUM: NORMAL LEFT ATRIUM: NORMAL RIGHT VENTRICLE: NORMAL LEFT VENTRICLE: NORMAL TRICUSPID VALVE: MILD TRICUSPID REGURGITATION MITRAL VALVE: MILD MITRAL REGURGITATION PULMONIC VALVE: NORMAL AORTIC VALVE: TRACE AORTIC REGURGITATION PERICARDIAL EFFUSION: NONE AORTIC ROOT: NORMAL LEFT VENTRICULAR WALL MOTION: SEVERE GLOBAL HYPOKINESIS. DOPPLER/COLOR FLOW: DIASTOLIC DYSFUNCTION. COMMENTS: 1. SEVERELY REDUCED LEFT VENTRICULAR SYSTOLIC FUNCTION. LEFT VENTRICULAR EJECTION FRACTION 30-35%. SEVERE GLOBAL HYPOKINESIS WITH MID TO DISTAL ANTERIOR SEPTAL AND APICAL TUCKER AKINESIS. 2. DIASTOLIC DYSFUNCTION. 3. MILD MITRAL REGURGITATION. 4. NORMAL FILLING PRESSURE. RIGHT ATRIAL PRESSURE 0-5 mmHg. TECHNOLOGIST: ANDERSON FORRESTER [facility]
--- NOTE | 2024-10-03 16:35 | P.PN ---
Date of Service: 10/03/24 Subjective Pending echo, plan to discharge home with home health, patient to ambulate with physical therapy today Review of Systems 10-point ROS is otherwise unremarkable Physical Examination vitals reviewed - Physical Exam General: Alert,Oriented x3 HEENT: Atraumatic, Normocephalic, PERRLA Neck: Supple Respiratory: Crackles, equal unlabored Cardiovascular: No edema, regular heart rate/rhythm Capillary refill: <2 Seconds Gastrointestinal: Normal bowel sounds Musculoskeletal: No clubbing, No swelling, moderate generalized weak Integumentary: Pressure ulcer Neurological: Normal affect, Abnormal gait, Abnormal strength, Abnormal tone Assessment and Plan Heart failure decompensated heart failure unknown ejection for Acute hypoxic respiratory failure secondary to bilateral pleural effusion O2 keep sats greater than 90%, nebs, Wean O2 Cardiomegaly uncontrolled HTN History of CVA x 2 hypertensionHyperlipidemia PAD status post saphenous vein ligation and stripping History of TX status postcardiac stent post TX x2 Echocardiogram ALEXA inhibitor/ARB Beta-yoav Cardiology consultation Aggressive diuresis Strict Is & Os Repeat chest x-ray Daily weight Education regarding diet and treatment of congestive heart failure patient states current medications include only atorvastatin and 162 mg ASA daily 09/30/24 AM labs stable Dysphagia Generalized weakness Barium swallow study-no overt aspiration noted Plan to discharge home with home health, with PT OT, custodial 40-year pack history former smoker, now only smokes occasional THC COPD wheezing - nebs as orderd Recommend cessation Social determinant of health problematic with home health as patient has moved from the area where it was instituted Disability and poor conditioning/chronically nonambulatory resulting in chronic wounds technical services consultant consult PT/OT consult Home health versus SNF placement Wound care consult VTE/GI prophylaxis - Advance Directives Does patient have a Living Will: No Does patient have a Durable POA for Healthcare: No - Code Status/Comfort Care Code Status Assessed: Yes Full Code Time spent with patient 25 minutes <Lisbeth Maravilla - Last Filed: 10/03/24 16:34> Patient was seen and examined. Events of the last 24 hours have been noted. Spoke with with KAROLINE regarding patient's clinical picture after evaluating and examining the patient independently. I performed a substantial part of the MDM during this patient's care today. I personally made or approved the documented management plan and acknowledge its risk of complications. I agree with the findings and documentation provided in the KAROLINE's notes. Continue with diuretics. Continue with strict blood pressure control. Continue with strict blood pressure control as well. Advance diet as tolerated and outpatient speech therapy and physical therapy follow-up. <Lida High - Last Filed: 10/21/24 19:47>
[2024-10-04 05:27] LABS: Hemoglobin 14.8 g/dL (13.6-17.9); RBC Red Blood Cell Count 4.79 M/uL (4.33-5.43)
[2024-10-04 05:28] LABS: Absolute Eosinophils 0.2 K/uL (0-0.5); Absolute Lymphocytes (CBC) 1.3 K/uL (0.7-4.9); Absolute Monocytes 0.6 K/uL (0.1-1.3); Absolute Neutrophil 3.4 K/uL (1.8-8.0); Basophils % 0.6 % (0-1.3); Eosinophils % 4.4 % (0-4.4); Hematocrit 44.3 % (39.6-49.0); Lymphocytes % 23.6 % (15.3-44.8); MCH 30.9 pg (27.0-35.0); MCHC 33.4 g/dL (32.0-36.0); MCV 92.6 fL (80-100); MPV 7.9 fL (7.6-11.3); Monocytes % 10.5 % (3.3-12.3); Neutrophils % 60.9 % (41.7-73.7); Platelets 158 thou/uL (152-406); Red Cell Distribution Width 13.9 % (12.1-15.2)
[2024-10-04 05:47] LABS: Albumin 3.2 g/dL (3.4-5.0); Anion Gap 7.7 mEq/L (5.0-15.0); Phosphorus 2.9 mg/dL (2.5-4.9); Potassium 3.7 mEq/L (3.5-5.1)
[2024-10-04 08:42] VITALS: TEMP 98.4; O2SAT 95
[2024-10-04] MEDS: POTASSIUM CL SA 10 MEQ TAB PO ONE (08:45)
[2024-10-04 12:28] VITALS: BP 116/81
== END 2024-10-04 13:08 | disposition home health service (06) | DRG 291 ==
LOC: ER 13:21 → ERHOLD 16:31 → 2ND 17:03
PROVIDERS: ADMIT Internal Medicine; ATTEND Hospitalist
DX: I11.0 Hypertensive heart disease with heart failure (principal); I50.23 Acute on chronic systolic (congestive) heart failure; J96.01 Acute respiratory failure with hypoxia; E78.00 Pure hypercholesterolemia, unspecified; I73.9 Peripheral vascular disease, unspecified; J44.9 Chronic obstructive pulmonary disease, unspecified; I25.2 Old myocardial infarction; I25.10 Atherosclerotic heart disease of native coronary artery without angina pectoris; R13.10 Dysphagia, unspecified; Z60.2 Problems related to living alone; Z95.5 Presence of coronary angioplasty implant and graft; Z79.82 Long term (current) use of aspirin; Z11.52 Encounter for screening for COVID-19; Z79.02 Long term (current) use of antithrombotics/antiplatelets; Z86.73 Personal history of transient ischemic attack (TIA), and cerebral infarction without residual deficits; Z79.899 Other long term (current) drug therapy
CPT/HCPCS: 36415; 71045; 74230; 80048; 80053; 80061; 80069; 82947; 83036; 83735; 83880; 84100; 84132; 84443; 84484; 85025; 85610; 87040; 87804; 87811; 92611; 93005; 93306; 94640; 96374; 97116; 97161; 97530; 99285; J1650; J1940; J2470; J3480; J7030; J7613; J7644

== ENCOUNTER 2024-11-22 13:39 | Emergency (ER) | payer OTHER ==
[2024-11-22 14:30] LABS: Absolute Basophils 0.1 K/uL (0-0.5); Absolute Eosinophils 0.3 K/uL (0-0.5); Absolute Lymphocytes (CBC) 1.9 K/uL (0.7-4.9); Absolute Monocytes 0.6 K/uL (0.1-1.3); Absolute Neutrophil 3.5 K/uL (1.8-8.0); Basophils % 0.9 % (0-1.3); Eosinophils % 4.6 % (0-4.4); Hematocrit 41.6 % (39.6-49.0); Hemoglobin 14.3 g/dL (13.6-17.9); Lymphocytes % 29.3 % (15.3-44.8); MCH 30.7 pg (27.0-35.0); MCHC 34.3 g/dL (32.0-36.0); MCV 89.3 fL (80-100); MPV 7.5 fL (7.6-11.3); Monocytes % 10.2 % (3.3-12.3); Platelets 177 thou/uL (152-406); RBC Red Blood Cell Count 4.66 M/uL (4.33-5.43); Red Cell Distribution Width 14.2 % (12.1-15.2)
[2024-11-22 14:38] LABS: PT Prothrombin Time 12.2 SECONDS (9.4-12.5); Protime INR 1.16
[2024-11-22 14:48] LABS: Albumin 3.1 g/dL (3.4-5.0); Albumin/Globulin Ratio 0.9 (1.1-1.8); Anion Gap 7.6 mEq/L (5.0-15.0); Bilirubin Direct 0.3 mg/dL (0-0.2); Bilirubin Indirect, Calculated 0.9 mg/dL (0.2-0.8); Bilirubin Total 1.2 mg/dL (0.2-1.0); Globulin 3.4 g/dL (2.3-3.5); Magnesium 1.9 mg/dL (1.6-2.4); Potassium 3.6 mEq/L (3.5-5.1); Protein, Total 6.5 g/dL (6.4-8.2); Troponin High Sensitivity 26.2 pg/mL (<58.9)
--- NOTE | 2024-11-22 14:57 | ER ---
Nurse's Notes [facility] Name: Cy Hills Age: 74 yrs Sex: Male : 1950 Arrival Date: 11/22/2024 Time: 13:39 Bed 15 Private MD: Diagnosis: Premature ventricular contractions Presentation: 11/22 13:41 Chief complaint: EMS states: FAMILY CALLED 2/2 HHN CONCERNS OVER HEART RATE. bp Coronavirus screen: At this time, the client does not indicate any symptoms associated with coronavirus-19. Ebola Screen: No symptoms or risks identified at this time. Initial Sepsis Screen: Does the patient meet any 2 criteria? No. Patient's initial sepsis screen is negative. Does the patient have a suspected source of infection? No. Patient's initial sepsis screen is negative. Risk Assessment: Do you want to hurt yourself or someone else? Patient reports no desire to harm self or others. Onset of symptoms is unknown. Care prior to arrival: IV initiated. 20 GA, in the right hand. 13:41 Method Of Arrival: EMS: [facility] bp 13:41 Acuity: DEBRA 5 bp Triage Assessment: 13:44 General: Appears in no apparent distress. Behavior is calm, cooperative, appropriate bp for age. Pain: Denies pain. EENT: No deficits noted. Neuro: No deficits noted. Cardiovascular: Rhythm is irregular. Respiratory: No deficits noted. GI: No signs and/or symptoms were reported involving the gastrointestinal system. : No signs and/or symptoms were reported regarding the genitourinary system. Derm: No deficits noted. Musculoskeletal: No deficits noted. Historical: - Allergies: 13:44 No Known Allergies; bp - PMHx: 13:44 HTN; High Cholesterol; bp - PSHx: 13:44 cardiac stents; bp - Immunization history:: Adult Immunizations up to date. - Infectious Disease History:: Denies. - Social history:: Smoking status: Patient denies any tobacco usage or history of. Screenin:46 [facility] ED Fall Risk Assessment (Adult) History of falling in the last 3 months, bp including since admission No falls in past 3 months (0 pts) Confusion or Disorientation No (0 pts) Intoxicated or Sedated No (0 pts) Impaired Gait No (0 pts) Mobility Assist Device Used No (0 pt) Altered Elimination No (0 pt) Score/Fall Risk Level 0 - 2 = Low Risk. Abuse screen: Denies threats or abuse. Denies injuries from another. Nutritional screening: No deficits noted. Tuberculosis screening: No symptoms or risk factors identified. Assessment: 13:46 General: Appears in no apparent distress. Behavior is calm, cooperative, appropriate bp for age. 15:21 Reassessment: Patient appears in no apparent distress at this time. Patient is alert, bp oriented x 3, equal unlabored respirations, skin warm/dry/pink. Patient states symptoms have improved. Vital Signs: 13:41 BP 163 / 86; Pulse 69; Resp 16; Temp 98; Pulse Ox 100% ; bp 14:30 BP 125 / 54; Pulse 85; Resp 15; Pulse Ox 97% ; bp 15:20 BP 125 / 79; Pulse 74; Resp 15; Pulse Ox 98% ; bp ED Course: 13:40 Patient arrived in ED. bp 13:42 Ketty Rojo MD is Attending Physician. sp3 13:44 Triage completed. bp 13:44 Arm band placed on. bp 13:46 Patient has correct armband on for positive identification. bp 13:56 Evaristo Izquierdo, RN is Primary Nurse. bp 14:22 Basic Metabolic Panel Sent. ty 14:22 CBC with Diff Sent. ty 14:22 LFT's Sent. ty 14:22 Magnesium Sent. ty 14:22 NT PRO-BNP Sent. ty 14:22 PT-INR Sent. ty 14:22 Troponin HS Sent. ty 14:33 XRAY Chest (1 view) In Process Unspecified. EDMS 15:21 Provided Education on: NA. bp 15:21 No provider procedures requiring assistance completed. IV discontinued, intact, bp bleeding controlled, No redness/swelling at site. Pressure dressing applied. Administered Medications: No medications were administered Medication: 13:46 VIS not applicable for this client. bp Outcome: 14:57 Discharge ordered by . sp3 15:21 Discharged to home via wheelchair, with family, bp 15:21 Condition: stable 15:21 Discharge instructions given to patient, Instructed on discharge instructions, follow up and referral plans. Demonstrated understanding of instructions, follow-up care, 15:22 Patient left the ED. bp Signatures: Dispatcher [employer] EDLA Evaristo Izquierdo, RN RN bp Ketty Rojo MD MD sp3 Alrfedo Oliveira ty Corrections: (The following items were deleted from the chart) 15:21 15:00 BP 125 / 54; Pulse 85bpm; Resp 15bpm; Pulse Ox 97%; bp bp
--- NOTE | 2024-11-22 14:57 | EDPHYS ---
Physician Documentation [facility] Name: Cy Hills Age: 74 yrs Sex: Male : 1950 Arrival Date: 11/22/2024 Time: 13:39 Bed 15 Private MD: ED Physician Ketty Rojo HPI: 11/22 14:52 This 74 yrs old Male presents to ER via EMS with complaints of PT ASYMPTOMATIC, low sp3 heart rate per home health. 14:52 74-year-old male with history of hypertension, hyperlipidemia presents to the ED with sp3 chief complaint bradycardia as measured by home health nurse. Patient is asymptomatic and denies any palpitations, shortness of breath, chest pain, fever, syncope, near syncope or any other symptoms whatsoever. Patient had heart rate in the 70s with ectopy for EMS.. Historical: - Allergies: 13:44 No Known Allergies; bp - PMHx: 13:44 HTN; High Cholesterol; bp - PSHx: 13:44 cardiac stents; bp - Immunization history:: Adult Immunizations up to date. - Infectious Disease History:: Denies. - Social history:: Smoking status: Patient denies any tobacco usage or history of. ROS: 14:53 Constitutional: Negative for fever, chills, and weight loss, Eyes: Negative for injury, sp3 pain, redness, and discharge, ENT: Negative for injury, pain, and discharge, Neck: Negative for injury, pain, and swelling, Respiratory: Negative for shortness of breath, cough, wheezing, and pleuritic chest pain, Abdomen/GI: Negative for abdominal pain, nausea, vomiting, diarrhea, and constipation, Back: Negative for injury and pain, MS/Extremity: Negative for injury and deformity, Skin: Negative for injury, rash, and discoloration, Neuro: Negative for headache, weakness, numbness, tingling, and seizure, Psych: Negative for depression, anxiety, suicide ideation, homicidal ideation, and hallucinations, Allergy/Immunology: Negative for hives, rash, and allergies, Endocrine: Negative for neck swelling, polydipsia, polyuria, polyphagia, and marked weight changes, Hematologic/Lymphatic: Negative for swollen nodes, abnormal bleeding, and unusual bruising, 14:53 All other systems are negative, Exam: 14:54 Constitutional: This is a well developed, well nourished patient who is awake, alert, sp3 and in no acute distress. Head/Face: Normocephalic, atraumatic. Eyes: Pupils equal round and reactive to light, extra-ocular motions intact. Lids and lashes normal. Conjunctiva and sclera are non-icteric and not injected. Cornea within normal limits. Periorbital areas with no swelling, redness, or edema. Neck: Trachea midline, no thyromegaly or masses palpated, and no cervical lymphadenopathy. Supple, full range of motion without nuchal rigidity, or vertebral point tenderness. No Meningismus. Chest/axilla: Normal chest wall appearance and motion. Nontender with no deformity. No lesions are appreciated. Respiratory: Lungs have equal breath sounds bilaterally, clear to auscultation and percussion. No rales, rhonchi or wheezes noted. No increased work of breathing, no retractions or nasal flaring. Abdomen/GI: Soft, non-tender, with normal bowel sounds. No distension or tympany. No guarding or rebound. No evidence of tenderness throughout. Back: No spinal tenderness. No costovertebral tenderness. Full range of motion. Skin: Warm, dry with normal turgor. Normal color with no rashes, no lesions, and no evidence of cellulitis. MS/ Extremity: Pulses equal, no cyanosis. Neurovascular intact. Full, normal range of motion. Neuro: Awake and alert, GCS 15, oriented to person, place, time, and situation. Cranial nerves II-XII grossly intact. Motor strength 5/5 in all extremities. Sensory grossly intact. Cerebellar exam normal. Normal gait. Psych: Awake, alert, with orientation to person, place and time. Behavior, mood, and affect are within normal limits. 14:54 Cardiovascular: Regular rhythm with ectopy, 14:54 ECG was reviewed by the Attending Physician. EKG demonstrates normal sinus rhythm at 71 bpm with PVCs every 3-4 beats, leftward axis, nonspecific diffuse ST/T changes without evidence of acute ischemia and no change from prior EKG dated September 29, 2024 with same PVC pattern. Vital Signs: 13:41 BP 163 / 86; Pulse 69; Resp 16; Temp 98; Pulse Ox 100% ; bp 14:30 BP 125 / 54; Pulse 85; Resp 15; Pulse Ox 97% ; bp 15:20 BP 125 / 79; Pulse 74; Resp 15; Pulse Ox 98% ; bp MDM: 13:45 Medical Screening Exam initiated sp3 14:55 Data reviewed: vital signs, nurses notes, old medical records, lab test result(s), EKG, sp3 radiologic studies. ED course: 74-year-old male with history of PVCs, and PMH above now with asymptomatic bradycardia as measured by home health. There has been no documented bradycardia for EMS or for rest in the ED. Workup is negative including no change in EKG, chest x-ray and labs. Patient is asymptomatic. Vital signs are normal. We will safely discharge patient home at this time as we have clinically ruled out ACS, LA, electrolyte abnormality, or any other critical process. Patient will follow-up with his PCP and return here for any further symptoms.. 11/22 14:03 Order name: Basic Metabolic Panel; Complete Time: 14:49 11/22 14:03 Order name: CBC with Diff; Complete Time: 14:49 11/22 14:03 Order name: LFT's; Complete Time: 14:49 11/22 14:03 Order name: Magnesium; Complete Time: 14:49 11/22 14:03 Order name: NT PRO-BNP; Complete Time: 14:49 11/22 14:03 Order name: PT-INR; Complete Time: 14:49 11/22 14:03 Order name: Troponin HS; Complete Time: 14:49 3 11/22 14:03 Order name: XRAY Chest (1 view) 11/22 14:03 Order name: EKG; Complete Time: 14:03 11/22 14:03 Order name: Cardiac monitoring; Complete Time: 14:54 11/22 14:03 Order name: EKG - Nurse/Tech; Complete Time: 14:54 11/22 14:03 Order name: IV Saline Lock; Complete Time: 14:22 11/22 14:03 Order name: Labs collected and sent; Complete Time: 14:22 11/22 14:03 Order name: O2 Per Protocol; Complete Time: 14:22 11/22 14:03 Order name: O2 Sat Monitoring; Complete Time: 14: Administered Medications: No medications were administered Disposition Summary: 11/22/24 14:57 Discharge Ordered Notes: Location: Home sp3 Condition: Stable sp3 Diagnosis - Premature ventricular contractions sp3 Followup: sp3 - With: Private Physician - When: Upon discharge from the Emergency Department - Reason: Continuance of care Discharge Instructions: - Discharge Summary Sheet sp3 - Premature Ventricular Contraction sp3 Forms: - Medication Reconciliation Form sp3 - Antibiotic Education sp3 - Prescription Opioid Use sp3 - Patient Portal Instructions sp3 - Leadership Thank You Letter sp3 Signatures: Dispatcher [employer] Evaristo David, CHACORTA RN Ketty Tuttle MD MD sp3
--- NOTE | 2024-11-22 17:07 | RAD REPORT ---
EXAM: Chest Single View HISTORY: PALPITATIONS COMPARISON: 09/29/2024 FINDINGS: LUNGS/PLEURA: The lungs are clear. No pleural effusions or pneumothorax. No pulmonary edema. Improved aeration from prior. MEDIASTINUM: The mediastinal silhouette is within normal limits. CARDIAC: The cardiac silhouette is within normal limits. UPPER ABDOMEN: No significant abnormality. BONES: No acute abnormality. LINES/TUBES/OTHER: N/A IMPRESSION: No evidence of acute cardiopulmonary disease.
--- NOTE | 2024-11-23 11:50 | EKG ---
Test Date: 2024-11-22 Test Time: 14:40:22 Spanisher: JADEN MEASUREMENT RESULTS: Intervals: Rate: 71 DC: 190 QRSD: 114 QT: 384 QTc: 417 [place]: P: 58 DC: 190 QRS: -78 T: 85 INTERPRETIVE STATEMENTS: Sinus rhythm with frequent premature ventricular complexes in a pattern of bigeminy Incomplete right bundle branch block Left anterior fascicular block Inferior infarct, age undetermined Anterolateral infarct, age undetermined Abnormal ECG Compared to ECG 09/29/2024 13:29:00 Incomplete right bundle-branch block now present Atrial premature complex(es) no longer present Myocardial infarct finding still present Electronically Signed On 11-23-24 11:49:36 PLANT PATHOLOGIST by Devan Wren
[2024-11-24 02:18] VITALS: BP 125/79; TEMP 98; O2SAT 98
== END 2024-11-22 15:22 | disposition home or self-care (01) ==
LOC: ER 13:39
DX: I49.3 Ventricular premature depolarization (principal); I10 Essential (primary) hypertension; E78.5 Hyperlipidemia, unspecified; E78.00 Pure hypercholesterolemia, unspecified; Z95.5 Presence of coronary angioplasty implant and graft
CPT/HCPCS: 36415; 71045; 80048; 80076; 83735; 83880; 84484; 85025; 85610; 93005; 99284

== ENCOUNTER 2024-12-26 13:36 | Emergency (ER) | payer OTHER ==
--- NOTE | 2024-12-26 14:17 | RAD REPORT ---
EXAM: Chest Single View HISTORY: bradycardia, weight gain COMPARISON: 11/22/2024 FINDINGS: LUNGS/PLEURA: Mild increased airspace disease at the right lung base. MEDIASTINUM: The mediastinal silhouette is within normal limits. CARDIAC: Stable size and configuration. UPPER ABDOMEN: No significant abnormality. BONES: No acute abnormality. LINES/TUBES/OTHER: N/A IMPRESSION: Mild increased opacities in the right lung base could reflect atelectasis and/or pneumonia/pneumoniti s. No edema identified.
[2024-12-26 14:45] LABS: Absolute Eosinophils 0.2 K/uL (0-0.5); Absolute Lymphocytes (CBC) 1.5 K/uL (0.7-4.9); Absolute Monocytes 0.6 K/uL (0.1-1.3); Absolute Neutrophil 4.1 K/uL (1.8-8.0); Basophils % 0.6 % (0-1.3); Eosinophils % 3.6 % (0-4.4); Hematocrit 42.4 % (39.6-49.0); Hemoglobin 14.4 g/dL (13.6-17.9); Lymphocytes % 22.8 % (15.3-44.8); MCH 31.3 pg (27.0-35.0); MCHC 33.9 g/dL (32.0-36.0); MCV 92.3 fL (80-100); MPV 8.1 fL (7.6-11.3); Monocytes % 9.9 % (3.3-12.3); Neutrophils % 63.1 % (41.7-73.7); Nucleated Red Blood Cells % 0.1 % (0-0); Platelets 191 thou/uL (152-406); RBC Red Blood Cell Count 4.59 M/uL (4.33-5.43); Red Cell Distribution Width 15.7 % (12.1-15.2)
[2024-12-26 14:47] LABS: PT Prothrombin Time 12.9 SECONDS (9.4-12.5); Protime INR 1.23
[2024-12-26 14:58] LABS: Anion Gap 6.6 mEq/L (5.0-15.0); Potassium 3.6 mEq/L (3.5-5.1); Troponin High Sensitivity 25.8 pg/mL (<58.9)
--- NOTE | 2024-12-26 15:43 | EDPHYS ---
Physician Documentation [facility] Name: Cy Hills Age: 74 yrs Sex: Male : 1950 Arrival Date: 12/26/2024 Time: 13:36 Bed 15 Private MD: ED Physician Ketty Rojo HPI: 12/26 13:48 This 74 yrs old Male presents to ER via Unassigned with complaints of Bradycardia. kb 13:48 Patient is a 74-year-old male who was sent in by home health due to bradycardia. States kb they went to do physical therapy with the patient and he was able to complete it but his heart rate would drop into the 40s. Called PCP and was told to have him evaluated at the ER. Patient has no complaints. Home health nurse also reported a weight gain of 5 pounds over the last 24 hours. Patient denies chest pain, shortness of breath, palpitations, dizziness. Historical: - PMHx: 15:50 High Cholesterol; HTN; kj2 - PSHx: 15:50 cardiac stents; kj2 - Immunization history:: Adult Immunizations unknown. - Infectious Disease History:: Denies. - Social history:: Smoking status: unknown. ROS: 13:49 Constitutional: As per HPI kb Exam: 13:49 Constitutional: This is a well developed, well nourished patient who is awake, alert, kb and in no acute distress. Head/Face: Normocephalic, atraumatic. ENT: Moist Mucous membranes Cardiovascular: Regular rate Respiratory: Respirations even and unlabored. No increased work of breathing. Talking in full sentences Skin: Warm, dry with normal turgor. Normal color. MS/ Extremity: Pulses equal, no cyanosis. Neurovascular intact. Full, normal range of motion. Neuro: Awake and alert, GCS 15, oriented to person, place, time, and situation. 13:49 Cardiovascular: Edema: pedal edema, 15:43 ECG was reviewed by the Attending Physician. kb Vital Signs: 14:15 BP 145 / 65; Pulse 38; Resp 18; Pulse Ox 98% on R/A; Weight 79.38 kg; Height 5 ft. 9 kj2 in. ; 15:25 BP 125 / 70; Pulse 74; Resp 18; Temp 98; Pulse Ox 99% on R/A; kj2 15:44 Pulse 71; kb 14:15 Body Mass Index 25.84 (79.38 kg, 175.26 cm) kj2 MDM: 13:42 Medical Screening Exam initiated kb 13:50 Data reviewed: vital signs, nurses notes. Historians other than the Patient: EMS: [facility]. 15:30 Differential Diagnosis arrhythmia, dehydration, abnormal electrolytes. Consideration of kb Admission/Observation Escalation of care including admission/observation considered. admission considered for bradycardia, however, pt's heart rate has maintained high 60s and 70s on clearing tub worker. The pulse ox has been reading in the 30s-40s. Pt states the home health nurse was also using a pulse ox to get heart rate. Pt continues to have no complaints or symptoms. . Management of patient was discussed with the following: Dr Rojo. Counseling: I had a detailed discussion with the patient and/or guardian regarding the historical points, exam findings, and any diagnostic results supporting the discharge/admit diagnosis, lab results, radiology results, the need for outpatient follow up, a family practitioner. ED course: Pt has not had cough, fever, congestion. Denies shortness of breath. 15:44 ED course: Today's EKG compared to previous and they are similar. kb 12/26 13:47 Order name: Basic Metabolic Panel; Complete Time: 15:05 kb 12/26 13:47 Order name: CBC with Diff; Complete Time: 14:52 kb 12/26 13:47 Order name: NT PRO-BNP; Complete Time: 15:05 kb 12/26 13:47 Order name: PT-INR; Complete Time: 14:52 kb 12/26 13:47 Order name: Troponin HS; Complete Time: 15:05 kb 12/26 13:47 Order name: XRAY Chest (1 view); Complete Time: 14:26 kb 12/26 13:47 Order name: Cardiac monitoring; Complete Time: 14:43 kb 12/26 13:47 Order name: EKG - Nurse/Tech; Complete Time: 14:43 kb 12/26 13:47 Order name: IV Saline Lock; Complete Time: 14:43 kb 12/26 13:47 Order name: Labs collected and sent; Complete Time: 14:43 kb 12/26 13:47 Order name: O2 Per Protocol; Complete Time: 14:43 kb 12/26 13:47 Order name: O2 Sat Monitoring; Complete Time: 14:43 kb EC:43 Rate is 71 beats/min. Rhythm is regular. QRS [place] is Normal. MO interval is normal at kb 182 msec. QRS interval is normal at 110 msec. QT interval is normal at 455 msec. Administered Medications: No medications were administered Disposition: 12/27 15:03 Co-signature as Attending Physician, Osmin Winn MD I reviewed the patient's care rn provided by the Advanced Practice Provider and agree with the diagnosis and treatment plan. Disposition Summary: 12/26/24 15:42 Discharge Ordered Notes: Location: Home kb Condition: Stable kb Diagnosis - Premature ventricular contractions kb Followup: kb - With: Emergency Department - When: As needed - Reason: Worsening of condition Followup: kb - With: Private Physician - When: 2 - 3 days - Reason: Recheck today's complaints, Continuance of care, Re-evaluation by your physician Followup: kb - With: Marcial Alvarado MD - When: 2 - 3 days - Reason: Recheck today's complaints Discharge Instructions: - Discharge Summary Sheet kb - Premature Ventricular Contraction kb Forms: - Medication Reconciliation Form kb - Antibiotic Education kb - Prescription Opioid Use kb - Patient Portal Instructions kb - Leadership Thank You Letter kb Signatures: Dispatcher [employer] EDMS Veuns Camilo, DISPENSARY ATTENDANT-C DISPENSARY ATTENDANT-Ckb Osmin Winn MD MD rn Jordan, Krystal, RN RN kj2 Corrections: (The following items were deleted from the chart) 12/26 13:48 13:48 BASIC METABOLIC PANEL+C.LAB.BRZ ordered. EDMS EDMS 13:48 13:48 CBC+H.LAB.BRZ ordered. EDMS EDMS 13:48 13:48 PROBNP+C.LAB.BRZ ordered. EDMS EDMS 13:48 13:48 PROTIME (+INR)+COAG.LAB.BRZ ordered. EDMS EDMS 13:48 13:48 Troponin High Sensitivity+C.LAB.BRZ ordered. EDMS EDMS 13:48 13:48 Chest Single View+RAD.RAD.BRZ ordered. EDMS EDMS
--- NOTE | 2024-12-26 15:43 | ER ---
Nurse's Notes [facility] Name: Cy Hills Age: 74 yrs Sex: Male : 1950 Arrival Date: 12/26/2024 Time: 13:36 Bed 15 Private MD: Diagnosis: Premature ventricular contractions Presentation: 12/26 14:12 Chief complaint: EMS states: low heart rate and pulse. Coronavirus screen: Client kj2 denies travel out of the [place] in the last 14 days. Ebola Screen: No symptoms or risks identified at this time. Initial Sepsis Screen: Does the patient meet any 2 criteria? Does the patient have a suspected source of infection? No. Patient's initial sepsis screen is negative. Risk Assessment: Do you want to hurt yourself or someone else? Patient reports no desire to harm self or others. Onset of symptoms. 14:12 Method Of Arrival: EMS: [facility] kj2 14:12 Acuity: DEBRA 3 kj2 Triage Assessment: 14:13 General: Appears in no apparent distress. Behavior is calm, cooperative. Pain: Denies kj2 pain. Neuro: Level of Consciousness is awake, alert, obeys commands, Oriented to person, place, time, situation. Cardiovascular: Patient's skin is warm and dry. Respiratory: Airway is patent Respiratory effort is unlabored. GI: No signs and/or symptoms were reported involving the gastrointestinal system. : No signs and/or symptoms were reported regarding the genitourinary system. Historical: - PMHx: 15:50 High Cholesterol; HTN; kj2 - PSHx: 15:50 cardiac stents; kj2 - Immunization history:: Adult Immunizations unknown. - Infectious Disease History:: Denies. - Social history:: Smoking status: unknown. Screenin:14 [facility] ED Fall Risk Assessment (Adult) History of falling in the last 3 months, kj2 including since admission No falls in past 3 months (0 pts) Confusion or Disorientation No (0 pts) Intoxicated or Sedated No (0 pts) Impaired Gait No (0 pts) Mobility Assist Device Used Yes (1 pt) Altered Elimination No (0 pt) Score/Fall Risk Level 0 - 2 = Low Risk Maintained a safe environment, Hourly rounding (assess needs \T\ fall precautionary measures) done. Abuse screen: Denies threats or abuse. Denies injuries from another. Nutritional screening: No deficits noted. Tuberculosis screening: No symptoms or risk factors identified. Assessment: 14:13 General: see triage assessment. Pain: Denies pain. Pain does not radiate. Pain began 2 kj2 hours ago. Neuro: Level of Consciousness is awake, alert, obeys commands, Oriented to person, place, time, situation. 15:25 Reassessment: Patient appears in no apparent distress at this time. Patient and/or kj2 family updated on plan of care and expected duration. Pain level reassessed. Patient is alert, oriented x 3, equal unlabored respirations, skin warm/dry/pink. Vital Signs: 14:15 BP 145 / 65; Pulse 38; Resp 18; Pulse Ox 98% on R/A; Weight 79.38 kg; Height 5 ft. 9 kj2 in. ; 15:25 BP 125 / 70; Pulse 74; Resp 18; Temp 98; Pulse Ox 99% on R/A; kj2 15:44 Pulse 71; kb 14:15 Body Mass Index 25.84 (79.38 kg, 175.26 cm) kj2 ED Course: 13:37 Patient arrived in ED. bd 13:41 Venus Camilo FNP-C is [facility]. kb 13:41 Osmin Winn MD is Attending Physician. kb 14:02 Talisha Dimas, CHACORTA is Primary Nurse. kj2 14:12 XRAY Chest (1 view) In Process Unspecified. EDMS 14:13 Triage completed. kj2 14:15 Arm band placed on Patient placed in an exam room, on a stretcher. kj2 14:15 Patient has correct armband on for positive identification. Bed in low position. Call kj2 light in reach. Provided Education on: call light. Client placed on continuous cardiac and pulse oximetry monitoring. NIBP monitoring applied. autism specialist on. 14:15 No provider procedures requiring assistance completed. Patient maintains SpO2 kj2 saturation greater than 95% on room air. 14:15 Maintain EMS IV. Dressing intact. Good blood return noted. Site clean \T\ dry. Gauge \T\ kj 2 site: 20g right AC. Flushed with 10 mL NS 14:44 Attending Physician role handed off by Osmin Winn MD sp3 14:44 Ketty Rojo MD is Attending Physician. sp3 15:43 Marcial Alvarado MD is Referral Physician. kb 15:51 IV discontinued, intact, bleeding controlled, No redness/swelling at site. Pressure kj2 dressing applied. Administered Medications: No medications were administered Medication: 14:15 VIS not applicable for this client. kj2 Outcome: 15:42 Discharge ordered by . kb 15:49 Discharged to home ambulatory, kj2 15:49 Condition: stable 15:49 Discharge instructions given to patient, Instructed on discharge instructions, follow up and referral plans. Demonstrated understanding of instructions, follow-up care, 18:27 Patient left the ED. Signatures: Dispatcher [employer] EDMS eVnus Camilo, HOME HEALTH SPECIALIST-C HOME HEALTH SPECIALIST-Renu Coto Heather, RN RN Ketty Rojo MD MD sp3 Talisha Dimas, CHACORTA RN kj2
[2024-12-26 20:40] VITALS: BP 125/70; TEMP 98; O2SAT 99
== END 2024-12-26 18:27 | disposition home or self-care (01) ==
LOC: ER 13:36
DX: I49.3 Ventricular premature depolarization (principal); I10 Essential (primary) hypertension; E78.00 Pure hypercholesterolemia, unspecified; Z95.818 Presence of other cardiac implants and grafts
CPT/HCPCS: 36415; 71045; 80048; 83880; 84484; 85025; 85610; 93005; 99284